=== PATIENT | female | born 1995 ===

== ENCOUNTER 2018-08-26 22:34 | Emergency (ER) | payer OTHER ==
--- NOTE | 2018-08-26 23:00 | ED PDOC ---
Arrival/HPI - General Chief Complaint: Abdominal Pain Time Seen by Provider: 08/26/18 23:00 Historian: Patient - History of Present Illness Narrative History of Present Illness (Text): 08/26/18 23:25 23 year old female, with no significant past medical history, who presents to the ED complaining pain and drainage to incision site x 2days. Patient notes associated nausea, vomiting, chills, subjective fever, dysuria, and burning with urination. was performed 5 months ago. Patient was previously hospitalized (2 weeks) for infection of the incision site one month s/p . Patient states LKMP was this month. Patient states she is not breast feeding. Patient denies any back pain, neck pain, diarrhea, cough, chest pain, headache, dizziness, or any other complaints. Time/Duration: < week (2 days) Symptom Onset: Sudden Symptom Course: Unchanged Activities at Onset: Light Context: Home Past Medical History - Provider Review Nursing Documentation Reviewed: Yes - Infectious Disease Hx of Infectious Diseases: None - Cardiac Hx Cardiac Disorders: No - Pulmonary Hx Respiratory Disorders: No - Neurological Hx Neurological Disorder: No - HEENT Hx HEENT Disorder: No - Renal Hx Renal Disorder: No - Endocrine/Metabolic Hx Endocrine Disorders: No - Hematological/Oncological Hx Blood Disorders: No - Integumentary Hx Dermatological Disorder: No - Musculoskeletal/Rheumatological Hx Musculoskeletal Disorders: No - Gastrointestinal Hx Gastrointestinal Disorders: No - Genitourinary/Gynecological Hx Genitourinary Disorders: No - Psychiatric Hx Psychophysiologic Disorder: No Hx Substance Use: No - Surgical History Hx Section: Yes (x2 with hx infection following recent) - Anesthesia Hx Anesthesia: Yes Hx Anesthesia Reactions: No Hx Malignant Hyperthermia: No Family/Social History - Physician Review Nursing Documentation Reviewed: Yes Family/Social History: Unknown Family HX Smoking Status: Never Smoked Hx Alcohol Use: No Hx Substance Use: No Allergies/Home Meds Allergies/Adverse Reactions: Allergies No Known Allergies Allergy (Verified 08/26/18 22:47) Review of Systems - Physician Review All systems were reviewed & negative as marked: Yes - Review of Systems Constitutional: Normal Eyes: Normal ENT: Normal Respiratory: Normal. absent: SOB, Cough Cardiovascular: Normal. absent: Chest Pain Gastrointestinal: Abdominal Pain ( incision sight), Nausea, Vomiting. absent: Diarrhea Genitourinary Female: Dysuria Musculoskeletal: Normal. absent: Back Pain, Neck Pain Skin: Other (drainage at at incision sight). absent: Rash Neurological: Normal. absent: Headache, Dizziness Endocrine: Normal Hemo/Lymphatic: Normal Psychiatric: Normal Physical Exam - Physical Exam Narrative Physical Exam (Text): 08/26/18 23:34 Gen: NAD, cooperative, well appearing, non-toxic. Head: NCAT. EYES: PERRL, EOMI, conjunctiva clear, EARS: TMs clear MOUTH: moist MM, posterior pharynx without erythema or exudate, uvula midline. CV: (+) S1S2, RRR, no M/G/R LUNGS: CTA B/L, No W/R/R, good air movement Abd: mild tenderness at well healed, low transverse incision site. Center of incision with small opening. No obvious dehiscence. No surrounding erythema or drainage from site. There is a yellowish drainage on guaze at site. Soft, normoactive bowel sounds, obese, NTTP, no guarding, rebound or rigidity. No CVA tenderness. Neuro: AAO x 3, GCS 15, CN 2-12 intact, motor and sensory grossly intact, 5/5 muscle strength B/L UE's and LE's. ext: no cyanosis or edema. Vital Signs Reviewed: Yes Vital Signs Temp Pulse Resp BP Pulse Ox 08/26/18 22:45 100.3 F H 110 H 18 131/83 98 Temperature: Febrile Blood Pressure: Normal Pulse: Tachycardic Respiratory Rate: Normal Appearance: Positive for: Well-Appearing, Non-Toxic, Comfortable Pain Distress: None Mental Status: Positive for: Alert and Oriented X 3 Medical Decision Making ED Course and Treatment: 08/26/18 23:37 Impression: 23 year old female presents to the ED complaining of pain and drainage to C-S ection incision sight. Plan: -- CT Abd/Pelvis -- Labs -- Tylenol -- Sodium Chloride -- Blood Culture -- POC Urine -- UA Progress Notes: 08/27/18 02:42 CT Abd/Pelvis reviewed, shows: IMPRESSION: Mild fat stranding surrounding the anterior abdominal wall left lower aspect incision in the topography of the section surgical intervention incision site. Possibly mild cellulitis. No associated fluid collection or incarcerated hernia. Diffuse thickening of the bladder and right ureter. Mild fat stranding from recent surgical intervention. Uncomplicated colonic diverticulosis. Cystitis. Diffuse thickening of the right liver, probably an ascending degenerative tract infection Mild splenomegaly. 08/27/18 02:49 Results of labs and radiology discussed with pt. Incision site re-examined, no fluid on area or active drainage. Guaze is dry. Pt resting comfortably and is stable for d/c home. Pt agreeable w/POC. Pt given abx in ED and Rx for abx and strict instructions to f/u with her surgeon on Wednesday. - Scribe Statement The provider has reviewed the documentation as recorded by the Scribe Angella Keller All medical record entries made by the Scribe were at my direction and personally dictated by me. I have reviewed the chart and agree that the record accurately reflects my personal performance of the history, physical exam, medical decision making, and the department course for this patient. I have also personally directed, reviewed, and agree with the discharge instructions and disposition. Disposition/Present on Arrival - Present on Arrival Any Indicators Present on Arrival: No History of DVT/PE: No History of Uncontrolled Diabetes: No Urinary Catheter: No History of Decub. Ulcer: No History Surgical Site Infection Following: Obstetrical/Gynecological Surgery - Disposition Have Diagnosis and Disposition been Completed?: Yes Diagnosis: UTI (urinary tract infection), Cellulitis Disposition: HOME/ ROUTINE Disposition Time: 02:50 Patient Plan: Discharge Condition: STABLE Discharge Instructions (ExitCare): Urinary Tract Infections in Adults, Cellulitis (ED) Additional Instructions: FIDEL SOTO, thank you for letting us take care of you today. Your provider was Delma Martel MD and you were treated for STOMACH PAIN. The emergency medical care you received today was directed at your acute symptoms. If you were prescribed any medication, please fill it and take as directed. It may take several days for your symptoms to resolve. Return to the Emergency Department if your symptoms worsen, do not improve, or if you have any other problems. Please contact your OB in 2 days. Bring any paperwork you were given at discharge with you along with any medications you are taking to your follow up visit. Our treatment cannot replace ongoing medical care by a primary care provider outside of the emergency department. Thank you for allowing the [facility] team to be part of your care today. Prescriptions: Sulfamethoxazole/Trimethoprim [Bactrim DS 800 mg-160 mg] 1 tab PO BID #14 tab Referrals: Christina Guadalupe MD [Primary Care Provider] - Follow up with primary Forms: [employer] (Tunisian)
[2018-08-26] MEDS ORDERED: Sodium Chloride 0.9% 1,000 ML IV STA (23:25)
[2018-08-27 00:13] LABS: BASO # 0.01 K/mm3 (0.0-2.0); BASO % 0.1 % (0.0-3.0); EOS % 0.3 % (1.5-5.0); GRAN # 6.81 (1.4-6.5); LYMPH # 1.3 (1.2-3.4); LYMPH % 15.2 % (22.0-35.0); MEAN CELL VOLUME 82.1 fl (80.0-105.0); MEAN CORPUSCULAR HEMOGLOBIN 26.6 pg (25.0-35.0); MEAN CORPUSCULAR HGB CONC 32.4 g/dl (31.0-37.0); MEAN PLATELET VOLUME 10.9 fl (7.0-11.0); MONO # 0.6 (0.1-0.6); MONO % 6.4 % (1.0-6.0); RBC 4.14 10^6/uL (3.5-6.1); RED CELL DISTRIBUTION WIDTH 14.3 % (11.5-14.5); WHITE BLOOD COUNT 8.7 10^3/ul (4.5-11.0)
[2018-08-27 00:22] LABS: INR 1.2; PARTIAL THROMBOPLASTIN TIME 24.9 Seconds (25.1-36.5); PROTHROMBIN TIME 13.7 SECONDS (9.4-12.5)
[2018-08-27 00:30] LABS: ALB/GLOB RATIO 1.1 (1.1-1.8); ALBUMIN 4.2 g/dL (3.0-4.8); ALT/SGPT 19 U/L (7-56); AST/SGOT 28 U/L (14-36); BLOOD UREA NITROGEN 10 mg/dL (7-21); CALCIUM 9.1 mg/dL (8.4-10.5); GFR NON-AFRICAN AMERICAN > 60; LIPASE 27 U/L (23-300)
[2018-08-27 00:40] LABS: URINE BILIRUBIN NEGATIVE (NEGATIVE); URINE BLOOD SMALL (NEGATIVE); URINE GLUCOSE (UA) NEGATIVE (NEGATIVE); URINE LEUKOCYTE ESTERASE LARGE Leu/uL (NEGATIVE); URINE PROTEIN 100 mg/dL (<30 mg/dL); URINE UROBILINOGEN 0.2 E.U./dL (<1 E.U./dL)
[2018-08-27 00:52] LABS: URINE APPEARANCE CLOUDY (CLEAR); URINE COLOR YELLOW (YELLOW)
[2018-08-27 01:05] LABS: URINE BACTERIA MOD (NEG); URINE WBC 25 - 30 /hpf (0-6)
[2018-08-27] MEDS ORDERED: Iohexol 350 MG/100 ML VIAL ONE (01:19)
[2018-08-27] MEDS ORDERED: Tmp-Smz 800 mg-160 mg DS Tab PO STA (02:50)
[2018-08-27 03:04] VITALS: BP 128/78; PULSE 82; RESP 17; TEMP 98.3; O2SAT 100
--- NOTE | 2018-08-27 10:49 | CT ---
Date of service: 08/27/2018 PROCEDURE: CT Abdomen and Pelvis with contrast HISTORY: c section wound dehiscence COMPARISON: None. TECHNIQUE: Intravenous contrast dose: 100 cc Omnipaque 350 Radiation dose: Total exam DLP = 1214.78 mGy-cm. This CT exam was performed using one or more of the following dose reduction techniques: Automated exposure control, adjustment of the mA and/or kV according to patient size, and/or use of iterative reconstruction technique. FINDINGS: LOWER THORAX: Unremarkable. LIVER: Hepatomegaly, hepatic steatosis without focal abnormality GALLBLADDER AND BILE DUCTS: Unremarkable. PANCREAS: Unremarkable. No gross lesion or ductal dilatation. SPLEEN: Top-normal spleen with respect to size/volume. No splenic abnormalities detected. ADRENALS: Unremarkable. No mass. KIDNEYS AND URETERS: Contrast-enhancing characteristics of the right ureter and collecting system compatible with ureteritis. Inflammatory changes in the distal ureter extend to the ureterovesical junction. VASCULATURE: Unremarkable. No aortic aneurysm. No atherosclerotic calcification or mural plaque present. BOWEL: Unremarkable. No obstruction. No gross mural thickening. APPENDIX: Normal appendix. PERITONEUM: Unremarkable. No free fluid. No free air. LYMPH NODES: Unremarkable. No enlarged lymph nodes. BLADDER: Bladder wall thickening noted. This either represents diffuse cystitis or reflective of the collapsed bladder wall state. REPRODUCTIVE: Unremarkable. BONES: No acute fracture. OTHER FINDINGS: Postoperative changes anterior abdominal pelvic wall consistent with history of prior . No drainable collection. No sinus or fistulous communication with the intra-abdominal peritoneal structures. IMPRESSION: Expected postoperative changes anterior abdominal pelvic wall consistent with history of . No drainable collection, sinus tract or fistulous communication noted. Right ureteritis and cystitis. Concordant results (preliminary interpretation) provided by [employer]. Procedure Completed: 01:32 Preliminary Report: Dictated and Authenticated: 02:19. Final Interpretation: 10:45.
== END 2018-08-27 03:27 | disposition home or self-care (01) ==
LOC: ED 22:34 → MERGE 22:34 → ED 08-27 03:27
DX: N39.0 Urinary tract infection, site not specified (principal); L03.311 Cellulitis of abdominal wall
CPT/HCPCS: 74177; 80053; 81001; 83690; 83735; 85025; 85610; 85730; 87040; 87086; 87181; 99283; J7030; Q9967

== ENCOUNTER 2018-12-15 07:56 | Emergency (ER) | payer OTHER ==
[2018-12-15 08:16] VITALS: BMI 40.3
--- NOTE | 2018-12-15 08:23 | ED PDOC ---
Arrival/HPI - General Time Seen by Provider: 12/15/18 07:58 Historian: Patient - History of Present Illness Narrative History of Present Illness (Text): 12/15/18 08:20 23 year old female, with no significant past medical history, presents to the ED for evaluation of flu-like symptoms since past 2 days. Patient reports subjective fever associated with generalized myalgias, sore throat and dizziness, unchanged after taking over the counter medication. Patient denies any other somatic complaints. Patient denies any headache, chest pain, shortness of breath, dyspnea on exertion, cough, abdominal pain, nausea, vomiting, diarrhea, back pain, neck pain, or any other complaints. Patient denies any recent sick contact or recent travel. Time/Duration: < week Symptom Onset: Gradual Symptom Course: Unchanged Activities at Onset: Light Context: Home Past Medical History - Provider Review Nursing Documentation Reviewed: Yes - Infectious Disease Hx of Infectious Diseases: None - Reproductive Currently : Unknown - Cardiac Hx Cardiac Disorders: No - Pulmonary Hx Respiratory Disorders: No - Neurological Hx Neurological Disorder: No - HEENT Hx HEENT Disorder: No - Renal Hx Renal Disorder: No - Endocrine/Metabolic Hx Endocrine Disorders: No - Hematological/Oncological Hx Blood Disorders: No - Integumentary Hx Dermatological Disorder: No - Musculoskeletal/Rheumatological Hx Musculoskeletal Disorders: No - Gastrointestinal Hx Gastrointestinal Disorders: No - Genitourinary/Gynecological Hx Genitourinary Disorders: No - Psychiatric Hx Psychophysiologic Disorder: No Hx Substance Use: No - Surgical History Hx Section: Yes (x2 with hx infection following recent) - Anesthesia Hx Anesthesia: Yes Hx Anesthesia Reactions: No Hx Malignant Hyperthermia: No Family/Social History - Physician Review Nursing Documentation Reviewed: Yes Family/Social History: No Known Family HX Smoking Status: Never Smoked Hx Alcohol Use: No Hx Substance Use: No Allergies/Home Meds Allergies/Adverse Reactions: Allergies No Known Allergies Allergy (Verified 12/15/18 08:16) Review of Systems - Physician Review All systems were reviewed & negative as marked: Yes - Review of Systems Constitutional: Fevers ENT: Sore Throat Respiratory: absent: SOB, Cough Cardiovascular: absent: Chest Pain, MCCLAIN Gastrointestinal: absent: Abdominal Pain, Diarrhea, Nausea, Vomiting Genitourinary Female: absent: Dysuria, Urine Output Changes Musculoskeletal: Myalgias. absent: Back Pain, Neck Pain Skin: absent: Rash Neurological: Dizziness. absent: Headache Physical Exam - Physical Exam Narrative Physical Exam (Text): 12/15/18 08:24 Gen: VS reviewed, alert, well developed, well nourished, nontoxic, mild distress. ENT: mild posterior pharynx erythema Eye: EOMI, PERRL. Neck: no JVD, supple, no adenopathy. CV: regular rate, regular rhythm, no rubs, no murmur, no gallops, S1, S2, pulses equal and strong. Pulm: no distress, clear to auscultation, no wheeze, no rhonchi, breath sounds equal, no rales. Abd: soft, nontender, no guarding, no rebound, no rigidity, normal bowel sounds. Ext: no edema. Skin: good color, no rash, no cyanosis. Psych: responds appropriately to questions, normal affect. Neuro: oriented x 3, CN2-12 intact grossly, motor intact, sensation intact. Appearance: Positive for: Well-Appearing, Non-Toxic, Comfortable Pain Distress: Mild Mental Status: Positive for: Alert and Oriented X 3 Medical Decision Making ED Course and Treatment: 12/15/18 08:25 Impression: 23 year old female presents to the ED for evaluation of flu-like symptoms. Differential Diagnosis included but are not limited to: Influenza Plan: -- Influenza A/B -- Reassess and disposition Prior Visits: Notes and results from previous visits were reviewed. Progress Notes: 12/15/18 08:59 nontoxic, healthy young patient with influenza. patient does not fit into target population for tx. supportive care. will rx lido for sore throat. - Scribe Statement The provider has reviewed the documentation as recorded by the Yarelyibbelen Hays. All medical record entries made by the Yarelyibbelen were at my direction and personally dictated by me. I have reviewed the chart and agree that the record accurately reflects my personal performance of the history, physical exam, medical decision making, and the department course for this patient. I have also personally directed, reviewed, and agree with the discharge instructions and disposition. Disposition/Present on Arrival - Present on Arrival Any Indicators Present on Arrival: No History of DVT/PE: No History of Uncontrolled Diabetes: No Urinary Catheter: No History Surgical Site Infection Following: Obstetrical/Gynecological Surgery - Disposition Have Diagnosis and Disposition been Completed?: Yes Diagnosis: Influenza A Disposition: HOME/ ROUTINE Disposition Time: 08:59 Patient Plan: Discharge Condition: STABLE Discharge Instructions (ExitCare): Flu, Adult (DC) Additional Instructions: return for any new or worsening symptoms. get plenty of rest but do not stay bed bound. stay well hydrated (water). Prescriptions: RX: Lidocaine 2% Viscous 15 ml MM Q3H #1 bottle Referrals: PCP,NO [Primary Care Provider] - Follow up with primary Forms: [employer] (Turkish)
[2018-12-15 08:33] VITALS: BP 138/72; PULSE 72; RESP 17; TEMP 100.7; O2SAT 100
== END 2018-12-15 09:26 | disposition home or self-care (01) ==
LOC: ED 07:56
DX: J10.1 Influenza due to other identified influenza virus with other respiratory manifestations (principal)